=== PATIENT | female | born 1970 | race American Indian/Alaskan Native ===

== ENCOUNTER 2016-12-25 20:08 | Emergency (ER) | payer MEDICAID, OTHER ==
[~2016-12-25] VITALS: Ht 177.8 cm; Wt 70.0 kg
[~2016-12-25 20:08] MED LIST: CETI10CA PO; HYDR25TA6 PO; LOSA50TA6 PO; OXYC-229 PO; PREG200C PO; VERA240T86 PO
[2016-12-25 21:40] VITALS: BP 132/84
== END 2016-12-25 21:42 | disposition home or self-care (01) ==
LOC: ED 21:00
DX: L03.818 Cellulitis of other sites (principal)
CPT/HCPCS: 99283

== ENCOUNTER 2016-12-29 18:39 | Inpatient (IN) | payer MEDICAID ==
[~2016-12-29] VITALS: Ht 177.8 cm; Wt 73.8 kg
[2016-12-29] MEDS ORDERED: SODIUM CHLORIDE 0.9% 1,000 ML IV ONE (20:40)
[2016-12-29] MEDS ORDERED: CYCL-259 PO (20:59)
[2016-12-29] MEDS ORDERED: HYDR50CA PO (20:59)
[2016-12-29] MEDS ORDERED: PHARMACOKINETIC CONSULTATION MC ONE (21:00)
[2016-12-29] MEDS ORDERED: PIPERACILLIN/TAZO 3.375 GM in SODIUM CHLORIDE 0.9% 50 ML IV ONE (21:00)
[2016-12-29] MEDS ORDERED: VANCOMYCIN PER PHARMACY MC PRN ×2 (21:00→22:00)
[2016-12-29] MEDS ORDERED: PHARMACOKINETIC MONITORING MC PRN (21:00)
[2016-12-29] MEDS ORDERED: VANCOMYCIN 1,400 MG in SODIUM CHLORIDE 0.9% 250 ML IV ONE (21:00)
[2016-12-29] MEDS ORDERED: SODIUM CHLORIDE FLUSH 10ML SYR IVF ONE (21:00)
[2016-12-29 21:40] LABS: BLOOD UREA NITROGEN 3 mg/dL (7-18)
[2016-12-29] MEDS ORDERED: PIPERACILLIN/TAZO/PMX 3.375GM 50 ML ONE (21:53)
[2016-12-29] MEDS ORDERED: ONDANSETRON 2MG/ML, 2ML IVPush PRN (22:00)
[2016-12-29] MEDS: HEPARIN 5,000 UNITS/ML, 1ML SQ SCH (22:00)
[2016-12-29] MEDS: PIPERACILLIN/TAZO 3.375 GM in SODIUM CHLORIDE 0.9% 50 ML IV SCH (22:00)
[2016-12-29] MEDS ORDERED: POLYETHYLENE GLYCOL 17 GM PACKET PO PRN (22:00)
[2016-12-29] MEDS ORDERED: BISACODYL 10 MG SUPP PR PRN (22:00)
[2016-12-29] MEDS: SODIUM CHLORIDE FLUSH 3ML SYRINGE IVF SCH (22:00)
[2016-12-29] MEDS ORDERED: POTASSIUM CHLORIDE 20 MEQ TAB.ER.PRT PO ONE (22:00)
[2016-12-29] MEDS ORDERED: ACETAMINOPHEN 325 MG TABLET PO PRN (22:00)
[2016-12-29] MEDS ORDERED: POTASSIUM CHLORIDE 20 MEQ TAB.ER.PRT ONE (22:33)
[2016-12-29 23:17] VITALS: BP 130/87
[2016-12-30] MEDS: MUPIROCIN OINT 2%, 22GM TP SCH ×4 (00:29→22:04)
[2016-12-30] MEDS: VERAPAMIL 80MG TABLET PO SCH ×4 (00:30→22:03)
[2016-12-30] MEDS: hydrOXyzine 50MG TABLET PO SCH ×2 (00:30→22:03)
[2016-12-30] MEDS: LOSARTAN 50MG TABLET PO SCH ×2 (00:31→22:03)
[2016-12-30] MEDS: CYCLOBENZAPRINE 10 MG TABLET PO PRN ×2 (00:31→22:05)
[2016-12-30] MEDS: PREGABALIN 200 MG CAPSULE PO SCH ×3 (00:31→22:03)
[2016-12-30] MEDS: HYDROcodone/APAP 5/325 TABLET PO PRN ×4 (03:55→22:03)
[2016-12-30] MEDS: PIPERACILLIN/TAZO 3.375 GM in SODIUM CHLORIDE 0.9% 50 ML IV SCH ×4 (03:56→22:04)
[2016-12-30] MEDS ORDERED: PHARMACOKINETIC CONSULTATION MC ONE (04:30)
[2016-12-30] MEDS ORDERED: PHARMACOKINETIC MONITORING MC PRN (04:30)
[2016-12-30] MEDS: HEPARIN 5,000 UNITS/ML, 1ML SQ SCH ×3 (05:16→22:04)
[2016-12-30 07:40] VITALS: BP 110/57
[2016-12-30 07:47] LABS: BLOOD UREA NITROGEN 3 mg/dL (7-18)
[2016-12-30 07:50] LABS: ASPARTATE AMINO TRANSFERASE 32 U/L (15-37)
[2016-12-30] MEDS: CETIRIZINE 10 MG TABLET PO SCH (08:14)
[2016-12-30] MEDS: SODIUM CHLORIDE FLUSH 3ML SYRINGE IVF SCH ×2 (08:15→21:00)
[2016-12-30] MEDS: SENNA/DOCUSATE TABLET PO SCH (08:15)
[2016-12-30] MEDS ORDERED: HYDROCHLOROTHIAZIDE 12.5 MG CAPSULE PO SCH (09:00)
[2016-12-30] MEDS ORDERED: MAGNESIUM SULFATE PMX 4GM/100M 100 ML IV ONE (10:00)
[2016-12-30] MEDS: VANCOMYCIN 1,400 MG in SODIUM CHLORIDE 0.9% 250 ML IV SCH ×2 (11:04→22:34)
[2016-12-30 13:15] VITALS: BP 113/62
[2016-12-30] MEDS: POTASSIUM CHLORIDE 20 MEQ TAB.ER.PRT PO SCH (16:32)
[2016-12-30 20:52] VITALS: BP 105/55
[2016-12-31 01:41] VITALS: BP_SYST 90; BP_SYST 91; BP_DIAS 50; BP_DIAS 55
[2016-12-31 02:03] VITALS: BP 101/58
[2016-12-31] MEDS: HEPARIN 5,000 UNITS/ML, 1ML SQ SCH ×3 (04:36→21:00)
[2016-12-31] MEDS: PIPERACILLIN/TAZO 3.375 GM in SODIUM CHLORIDE 0.9% 50 ML IV SCH ×4 (04:36→23:11)
[2016-12-31 05:10] LABS: BLOOD UREA NITROGEN 6 mg/dL (7-18)
[2016-12-31] MEDS: SODIUM CHLORIDE FLUSH 3ML SYRINGE IVF SCH ×2 (09:00→21:00)
[2016-12-31] MEDS: VERAPAMIL 80MG TABLET PO SCH ×3 (09:05→21:48)
[2016-12-31] MEDS: POTASSIUM CHLORIDE 20 MEQ TAB.ER.PRT PO SCH (09:06)
[2016-12-31] MEDS: HYDROcodone/APAP 5/325 TABLET PO PRN ×3 (09:06→21:48)
[2016-12-31] MEDS: SENNA/DOCUSATE TABLET PO SCH (09:06)
[2016-12-31] MEDS: CYCLOBENZAPRINE 10 MG TABLET PO PRN (09:06)
[2016-12-31] MEDS: MUPIROCIN OINT 2%, 22GM TP SCH ×3 (09:07→21:49)
[2016-12-31 09:12] VITALS: BP 115/75
[2016-12-31] MEDS: CETIRIZINE 10 MG TABLET PO SCH (09:55)
[2016-12-31] MEDS: PREGABALIN 200 MG CAPSULE PO SCH ×2 (09:55→22:23)
[2016-12-31] MEDS: VANCOMYCIN 1,400 MG in SODIUM CHLORIDE 0.9% 250 ML IV SCH (11:27)
[2016-12-31] MEDS: FLUOXETINE 20 MG CAPSULE PO SCH (14:48)
[2016-12-31 15:23] VITALS: BP 98/48
[2016-12-31 19:11] VITALS: BP 103/68
[2016-12-31 21:44] VITALS: BP 96/66
[2016-12-31] MEDS: hydrOXyzine 50MG TABLET PO SCH (22:23)
[2017-01-01] MEDS: VANCOMYCIN 1,400 MG in SODIUM CHLORIDE 0.9% 250 ML IV SCH (00:21)
[2017-01-01 02:29] VITALS: BP 103/67
[2017-01-01] MEDS: HEPARIN 5,000 UNITS/ML, 1ML SQ SCH ×3 (05:00→20:54)
[2017-01-01] MEDS: PIPERACILLIN/TAZO 3.375 GM in SODIUM CHLORIDE 0.9% 50 ML IV SCH ×2 (05:18→09:13)
[2017-01-01 06:43] VITALS: BP 104/68
[2017-01-01] MEDS: SODIUM CHLORIDE FLUSH 3ML SYRINGE IVF SCH ×2 (09:00→20:54)
[2017-01-01] MEDS: SENNA/DOCUSATE TABLET PO SCH (09:00)
[2017-01-01] MEDS: PREGABALIN 200 MG CAPSULE PO SCH ×2 (09:12→20:54)
[2017-01-01] MEDS: CETIRIZINE 10 MG TABLET PO SCH (09:13)
[2017-01-01] MEDS: VERAPAMIL 80MG TABLET PO SCH ×3 (09:13→20:55)
[2017-01-01] MEDS: FLUOXETINE 20 MG CAPSULE PO SCH (09:13)
[2017-01-01] MEDS: MUPIROCIN OINT 2%, 22GM TP SCH ×3 (09:14→20:58)
[2017-01-01] MEDS: HYDROcodone/APAP 5/325 TABLET PO PRN ×3 (09:22→19:53)
[2017-01-01 11:23] LABS: BLOOD UREA NITROGEN 6 mg/dL (7-18)
[2017-01-01] MEDS: AMOXICILLIN/CLAV 875-125MG TABLET PO SCH ×2 (12:45→20:54)
[2017-01-01] MEDS: QUETIAPINE 25MG TABLET PO PRN (12:45)
[2017-01-01 14:43] VITALS: BP 103/60
[2017-01-01 19:10] VITALS: BP_SYST 80; BP_SYST 88; BP_DIAS 53; BP_DIAS 63
[2017-01-01 19:26] VITALS: BP 92/53
[2017-01-01] MEDS: hydrOXyzine 50MG TABLET PO SCH (20:54)
[2017-01-02 03:00] VITALS: BP 92/62
[2017-01-02 04:29] VITALS: BP 110/73
[2017-01-02] MEDS: HEPARIN 5,000 UNITS/ML, 1ML SQ SCH ×4 (04:41→22:24)
[2017-01-02] MEDS: HYDROcodone/APAP 5/325 TABLET PO PRN ×5 (04:42→23:29)
[2017-01-02 06:58] VITALS: BP 107/66
[2017-01-02] MEDS: SENNA/DOCUSATE TABLET PO SCH (09:00)
[2017-01-02] MEDS: SODIUM CHLORIDE FLUSH 3ML SYRINGE IVF SCH ×2 (09:00→21:00)
[2017-01-02] MEDS: CETIRIZINE 10 MG TABLET PO SCH (09:48)
[2017-01-02] MEDS: AMOXICILLIN/CLAV 875-125MG TABLET PO SCH ×2 (09:48→22:25)
[2017-01-02] MEDS: PREGABALIN 200 MG CAPSULE PO SCH ×2 (09:48→22:25)
[2017-01-02] MEDS: VERAPAMIL 80MG TABLET PO SCH ×3 (09:49→22:24)
[2017-01-02] MEDS: MUPIROCIN OINT 2%, 22GM TP SCH ×3 (09:49→22:25)
[2017-01-02] MEDS: FLUOXETINE 20 MG CAPSULE PO SCH (10:27)
[2017-01-02 13:43] VITALS: BP 97/58
[2017-01-02 18:37] VITALS: BP 108/62
[2017-01-02] MEDS: QUETIAPINE 25MG TABLET PO PRN (22:24)
[2017-01-02] MEDS: hydrOXyzine 50MG TABLET PO SCH (22:25)
[2017-01-03 04:27] VITALS: BP 96/55
[2017-01-03] MEDS: HEPARIN 5,000 UNITS/ML, 1ML SQ SCH ×2 (05:00→13:00)
[2017-01-03 05:04] LABS: BLOOD UREA NITROGEN 9 mg/dL (7-18)
[2017-01-03 06:59] VITALS: BP 100/66
[2017-01-03] MEDS: HYDROcodone/APAP 5/325 TABLET PO PRN ×3 (08:20→15:03)
[2017-01-03] MEDS: CETIRIZINE 10 MG TABLET PO SCH (08:20)
[2017-01-03] MEDS: PREGABALIN 200 MG CAPSULE PO SCH (08:20)
[2017-01-03] MEDS: VERAPAMIL 80MG TABLET PO SCH (08:21)
[2017-01-03] MEDS: AMOXICILLIN/CLAV 875-125MG TABLET PO SCH (08:21)
[2017-01-03] MEDS: FLUOXETINE 20 MG CAPSULE PO SCH (08:21)
[2017-01-03] MEDS: MUPIROCIN OINT 2%, 22GM TP SCH (08:22)
[2017-01-03] MEDS: SENNA/DOCUSATE TABLET PO SCH (08:23)
[2017-01-03] MEDS: SODIUM CHLORIDE FLUSH 3ML SYRINGE IVF SCH (08:23)
[2017-01-03] MEDS ORDERED: DIPHENHYDRAMINE 25 MG CAPSULE PO ONE (10:30)
[2017-01-03] MEDS ORDERED: AMOX1TAB12 PO (12:29)
[2017-01-03] MEDS ORDERED: QUET25TA PO (12:29)
[2017-01-03] MEDS ORDERED: FLUO20CA8 PO (12:29)
[2017-01-03] MEDS ORDERED: MUPI22OI2 TP (12:29)
[2017-01-03 13:56] VITALS: BP 98/63
== END 2017-01-03 15:19 | disposition home or self-care (01) | DRG 602 ==
LOC: ED 21:03 → EDIP 21:04 → ED 21:23 → 4WST 22:55
DX: L01.00 Impetigo, unspecified (principal); E43 Unspecified severe protein-calorie malnutrition; L03.211 Cellulitis of face; G89.29 Other chronic pain; I10 Essential (primary) hypertension; M54.9 Dorsalgia, unspecified; Z98.1 Arthrodesis status; F17.200 Nicotine dependence, unspecified, uncomplicated; Z80.9 Family history of malignant neoplasm, unspecified; Z83.3 Family history of diabetes mellitus; Z82.49 Family history of ischemic heart disease and other diseases of the circulatory system; R00.0 Tachycardia, unspecified; E83.42 Hypomagnesemia; E87.6 Hypokalemia; F42.4 Excoriation (skin-picking) disorder; F43.10 Post-traumatic stress disorder, unspecified; Z68.23 Body mass index [BMI] 23.0-23.9, adult; F90.9 Attention-deficit hyperactivity disorder, unspecified type; Z79.899 Other long term (current) drug therapy
CPT/HCPCS: 36415; 80048; 80053; 82040; 83605; 83735; 84100; 85025; 87040; 87070; 87205; 99285; J1644; J2543; J3370; J3475; J7050; Q0163

== ENCOUNTER 2017-01-24 21:36 | Emergency (ER) | payer MEDICAID ==
[~2017-01-24] VITALS: Ht 177.8 cm; Wt 78.7 kg
[~2017-01-24 21:36] MED LIST changes: +AMOX1TAB12 PO; +CYCL-259 PO; +FLUO20CA8 PO; +HYDR50CA PO; +MUPI22OI2 TP; +QUET25TA PO
[2017-01-24 22:21] LABS: DAU SCREEN DISCLAIMER
[2017-01-24 22:30] VITALS: BP 115/61
== END 2017-01-24 22:54 | disposition left against medical advice (07) ==
LOC: ED 22:22
DX: R21 Rash and other nonspecific skin eruption (principal); I10 Essential (primary) hypertension
CPT/HCPCS: 80307; 99283

== ENCOUNTER 2018-01-01 05:20 | Emergency (ER) | payer MEDICAID ==
[~2018-01-01] VITALS: Ht 177.8 cm; Wt 79.5 kg
[~2018-01-01 05:20] MED LIST changes: -OXYC-229 PO; +OXYC-307 PO
[2018-01-01] MEDS ORDERED: DOXY100T9 PO (05:30)
[2018-01-01] MEDS ORDERED: CEPH-368 PO (05:30)
[2018-01-01] MEDS ORDERED: OXYC20TA2 PO (05:30)
[2018-01-01] MEDS ORDERED: ETOMIDATE 20 MG/10 ML IV ONE (07:00)
[2018-01-01] MEDS ORDERED: ETOMIDATE 20 MG/10 ML ONE (07:07)
[2018-01-01] MEDS ORDERED: METOCLOPRAMIDE 5 MG/ML, 2ML ONE (08:09)
[2018-01-01] MEDS ORDERED: morphine SULFATE 10 MG/ML, 1ML ONE (08:10)
[2018-01-01 08:20] VITALS: BP 118/73
[2018-01-01] MEDS ORDERED: morphine SULFATE 10 MG/ML, 1ML IVPush ONE (08:30)
[2018-01-01] MEDS ORDERED: METOCLOPRAMIDE 5 MG/ML, 2ML IVPush ONE (08:30)
== END 2018-01-01 08:50 | disposition home or self-care (01) ==
LOC: ED 08:31
DX: T84.020A Dislocation of internal right hip prosthesis, initial encounter (principal); F32.9 Major depressive disorder, single episode, unspecified; Y79.2 Prosthetic and other implants, materials and accessory orthopedic devices associated with adverse incidents
CPT/HCPCS: 27250; 72170; 73501; 73502; 96374; 96375; 99152; 99285; J2270; J2765

== ENCOUNTER 2018-02-23 11:24 | Emergency (ER) | payer MEDICAID ==
[~2018-02-23] VITALS: Ht 177.8 cm; Wt 78.0 kg
[~2018-02-23 11:24] MED LIST changes: +CEPH-368 PO; +DOXY100T9 PO; +OXYC20TA2 PO
[2018-02-23 11:25] VITALS: BP 122/90
[2018-02-23] MEDS ORDERED: SODIUM CHLORIDE FLUSH 10ML SYR IVF ONE (12:00)
[2018-02-23] MEDS ORDERED: PROPOFOL 10 MG/ML, 20ML ONE (13:03)
[2018-02-23] MEDS ORDERED: OXYcodone/APAP 5/325MG TABLET ONE (13:39)
[2018-02-23] MEDS ORDERED: OXYcodone/APAP 5/325MG TABLET PO ONE (14:00)
== END 2018-02-23 14:43 | disposition home or self-care (01) ==
LOC: ED 14:01
DX: S73 Dislocation and sprain of joint and ligaments of hip (principal); I10 Essential (primary) hypertension; W01.0XXA Fall on same level from slipping, tripping and stumbling without subsequent striking against object, initial encounter; Y93.89 Activity, other specified; Y92.091 Bathroom in other non-institutional residence as the place of occurrence of the external cause; Y99.8 Other external cause status
CPT/HCPCS: 27250; 99152; 99285

== ENCOUNTER 2019-08-17 06:01 | Emergency (ER) | payer MEDICAID ==
[~2019-08-17] VITALS: Ht 177.8 cm; Wt 78.0 kg
[~2019-08-17 06:01] MED LIST changes: +DOXY-162 PO; -DOXY100T9 PO; +FLUO20CA23 PO; -FLUO20CA8 PO; +LOSA50TA14 PO; -LOSA50TA6 PO; -QUET25TA PO; +QUET25TA7 PO; +VERA240T10 PO; -VERA240T86 PO
[2019-08-17 06:08] VITALS: BP 134/77
[2019-08-17] MEDS ORDERED: PROPARACAINE OPHTH 0.5%, 15ML ONE (06:21)
[2019-08-17] MEDS ORDERED: FLUORESCEIN OPHTHALMIC 1 MG STRIP ONE ×2 (06:21→06:23)
[2019-08-17] MEDS ORDERED: FLUORESCEIN OPHTHALMIC 1 MG STRIP LEFTEYE ONE (06:30)
[2019-08-17] MEDS ORDERED: PROPARACAINE OPHTH 0.5%, 15ML LEFTEYE ONE (06:30)
--- NOTE | 2019-08-17 06:33 | NUR ---
PT TO CT
[2019-08-17] MEDS ORDERED: LIDOCAINE-MPF 1%, 5ML ONE (06:39)
[2019-08-17] MEDS ORDERED: LIDOCAINE-MPF 1%, 5ML INFIL ONE (07:00)
[2019-08-17] MEDS ORDERED: NEOSPORIN OINT. PKT 1 PACKET ONE (07:24)
== END 2019-08-17 09:47 | disposition home or self-care (01) ==
LOC: ED 07:26
DX: S01.81XA Laceration without foreign body of other part of head, initial encounter (principal); H57.04 Mydriasis; I10 Essential (primary) hypertension; W19.XXXA Unspecified fall, initial encounter; Y93.89 Activity, other specified; Y92.098 Other place in other non-institutional residence as the place of occurrence of the external cause; Y99.8 Other external cause status
CPT/HCPCS: 12011; 70450; 70486; 99284